=== PATIENT | female | born 1990 | race Caucasian/White ===

== ENCOUNTER 2020-06-08 21:56 | Emergency (ER) | payer OTHER ==
[~2020-06-08] VITALS: Ht 162.6 cm; Wt 54.5 kg
--- NOTE | 2020-06-08 22:48 | PHYS DOC ---
Adult General Chief Complaint Chief Complaint: LACERATION/AVULSION HPI HPI History was obtained by friend who presented with her due to patient being inebriated. Patient is a 29-year-old female who was at a wine tasting at [place] approximately 30 minutes prior to presentation. Friend reports that as she was descending some stairs at a bar she missed the last stair and face planted hitting her chin on the floor. Friend reports that she was able to get up unassisted and walk unassisted after the event and reports no periods of unconsciousness or unresponsiveness due to the event however did vomit which she thinks is most likely due to intoxication. Friend reports that she was oth erwise acting appropriately and was attentive. Patient states that she does not take any medicines or have any medical history. Review of Systems Review of Systems Fourteen body systems of review of systems have been reviewed. See HPI for pertinent positives and negative responses, other perkins all other systems are negative, non-pertinent or non-contributory Physical Exam Physical Exam Constitutional: Pt is oriented to person, place, and time. Pt appears well-developed and well- nourished. HEENT: Head: Normocephalic and atraumatic. TMs clear, no hemotympanum Conjunctivae and EOM are normal. Pupils are equal, round, and reactive to light. Oropharynx is clear and moist. No hematomas or lacerations or abrasions to face or scalp OP clear, no blood, no malocclusion, dentition intact Nares clear, no nasal septal hematoma Midface stable Neck: C-spine midline nontender, no step-offs Cardiovascular: Normal rate, regular rhythm and normal heart sounds. Pulmonary/Chest: Effort normal and breath sounds normal. No respiratory distress. No wheezes. CTA bilaterally Abdominal: Soft. Bowel sounds are normal. Pt exhibits no distension. There is no tenderness. Musculoskeletal: No bony tenderness to extremities, no deformities, full ROM extremities Chest wall stable Pelvis stable and non-tender No vertebral TTP and spine without stepoffs Neurological: Pt is alert and oriented to person, place, and time. Moving all extremities willfully, able to wiggle all fingers and toes Alert and oriented x 3 Sensation grossly intact Skin: Skin is warm and dry. No abrasions, 1.3cm simple horizontal laceration noted to inferior portion of chin Psychiatric: Unable to fully assess 2/2 ETOH intoxication Current Patient Data Vital Signs Vital Signs Date Time Temp Pulse Resp B/P (MAP) Pulse Ox O2 Delivery O2 Flow Rate FiO2 06/08/20 21:56 98.1 79 18 108/67 (81) 96 06/08/20 22:20 Room Air Vital Signs Date Time Temp Pulse Resp B/P (MAP) Pulse Ox O2 Delivery O2 Flow Rate FiO2 06/09/20 01:11 70 16 111/68 (82) 100 Room Air 06/08/20 21:56 98.1 EKG EKG EKG ordered and interpreted by myself at 2315 hrs. as sinus rhythm at 75 bpm, unremarkable intervals, left axis deviation, no ischemic findings, no STEMI Radiology/Procedures Radiology/Procedures Exam: CT head and cervical spine without contrast INDICATION: Trauma TECHNIQUE: Sequential axial images through the head were obtained without the administration of IV contrast. Exposure: One or more of the following in the visualized dose reduction techniques were utilized for this examination: 1. Automated exposure control 2. Adjustment of the MA and/or KV according to patient size 3. Use of iterative of reconstructive technique Comparisons: None FINDINGS: Head: No focal parenchymal lesion or hemorrhage is identified. There is no midline shift or sulcal effacement. No acute vascular territory infarction is identified. Pabon-white distinction is preserved. The ventricular system is within normal limits without compression hydrocephalus. The basal cisterns are well maintained. The visualized portions of the paranasal sinuses and mastoid air cells are well- pneumatized. No acute fractures. Cervical spine: Vertebral body heights are well-maintained. Mild reversal of the normal cervical lordosis. Fracture to the cervical spine is not identified. No significant spondylotic change in cervical spine. Visualized paraspinal soft tissues are unremarkable. IMPRESSION: 1. No acute intracranial abnormality. 2. Negative CT C-spine for acute traumatic injury. Electronically signed by: Sherrie Brooks MD (06/08/2020 10:55 PM) [facility] Heart Score C/O Chest Pain: No Risk Factors: Risk Factors: DM, Current or recent (<one month) smoker, HTN, HLP, family history of CAD, obesity. Risk Scores: Risk Factors: DM, Current or recent (<one month) smoker, HTN, HLP, family history of CAD, obesity. Course & Med Decision Making Course & Med Decision Making VSS. HPI and PE concerning for fall with simple laceration to chin in an intoxicated patient ER workup unremarkable. Tetanus up-to-date. Would repaired with x5 simple sutures. Disclosed no role in antibiotics. Close outpatient follow-up advised, strict return precautions discussed, patient going home with friend and will have at home who will watch over patient throughout the night Kristy Disclaimer Eduaron Disclaimer This electronic medical record was generated, in whole or in part, using a voice recognition dictation system. Laceration/Wound Repair Laceration/Wound Repair : Wound Location: head Wound Explored: clean Anesthesia: 1% Lidocaine Wound Repaired With: sutures Suture Size/Type: 5:0 Layer Closure?: No Progress Indication: laceration Procedure: The patient was placed in the appropriate position and anesthesia around the chin with 3ml 1% lidocaine without was used. The area was then cleaned and explored without abnormalities. The laceration was sutured closed with x5 simple interrupted 5.0 non-absorbable sutures.The wound area was then dressed with sterile dressing Total repaired wound length: 1.3cm Other Items: none The patient tolerated the procedure without observed or reported complications Departure Departure: Impression: Primary Impression: Laceration of chin without complication Additional Impression: Alcohol intoxication Disposition: 01 HOME / SELF CARE / HOMELESS Condition: IMPROVED Patient Instructions: Laceration Care, Adult Additional Instructions: You were seen for a laceration. Keep the area clean and dry. You should return to the ED or your PCP office to get your sutures removed in approximately 5 days. Please remember you had a total of times 5 sutures were placed. Return to the ED immediately if you develop any signs of infection like increased pain, redness, fever, or purulent (pus) drainage. Do not take baths, submerge the wound, or use a hot tub until your stitches are removed and the wound is healed. It was a pleasure to take care of you and I wish you a speedy recovery Problem Qualifiers JEFFREY LUNDY DO Jun 08, 2020 22:48
--- NOTE | 2020-06-08 22:58 | RAD ---
Exam: CT head and cervical spine without contrast INDICATION: Trauma TECHNIQUE: Sequential axial images through the head were obtained without the administration of IV co ntrast. Exposure: One or more of the following in the visualized dose reduction techniques were utilized for this examination: 1. Automated exposure control 2. Adjustment of the MA and/or KV according to patient size 3. Use of iterative of reconstructive technique Comparisons: None FINDINGS: Head: No focal parenchymal lesion or hemorrhage is identified. There is no midline shift or sulcal effaceme nt. No acute vascular territory infarction is identified. Pabon-white distinction is preserved. The ventricular system is within normal limits without compression hydrocephalus. The basal cisterns are well maintained. The visualized portions of the paranasal sinuses and mastoid air cells are well-pneumatized. No acute fractures. Cervical spine: Vertebral body heights are well-maintained. Mild reversal of the normal cervical lordosis. Fracture to the cervical spine is not identified. No significant spondylotic change in cervical spine. Visualized paraspinal soft tissues are unremarkable. IMPRESSION: 1. No acute intracranial abnormality. 2. Negative CT C-spine for acute traumatic injury. Electronically signed by: Sherrie Brooks MD (06/08/2020 10:55 PM) [facility]
[2020-06-08] MEDS ORDERED: LIDOCAINE 1%/EPI 1:100,000 20 ML VIAL. ONE (23:08)
[2020-06-08] MEDS ORDERED: ONDANSETRON PF 4 MG/2 ML VIAL. IVP ONE (23:15)
[2020-06-08] MEDS ORDERED: IV NORMAL SALINE 1,000ML 1,000 ML IV ONE (23:15)
[2020-06-08] MEDS ORDERED: LIDOCAINE 1%/EPI 1:100,000 20 ML VIAL. IJ ONE (23:15)
[2020-06-09] MEDS ORDERED: IV NORMAL SALINE 1,000ML 1,000 ML IV ONE (00:15)
[2020-06-09 01:11] VITALS: BP 111/68
== END 2020-06-09 01:35 | disposition home or self-care (01) ==
LOC: ER 21:56
DX: S01.81XA Laceration without foreign body of other part of head, initial encounter (principal); F10.129 Alcohol abuse with intoxication, unspecified; Y90.9 Presence of alcohol in blood, level not specified; M54.2 Cervicalgia; W22.8XXA Striking against or struck by other objects, initial encounter; Y93.89 Activity, other specified; Y92.89 Other specified places as the place of occurrence of the external cause; Y99.8 Other external cause status
CPT/HCPCS: 12011; 70450; 72125; 96361; 96374; 99285; J2405; J7030